=== PATIENT | male | born 1955 | race Two or more races ===

== ENCOUNTER 2016-07-27 21:38 | Emergency (ER) | payer MEDICAID ==
--- NOTE | 2016-07-27 22:10 | ED Physician Chart ---
Chief Complaint/HPI - Patient Information Date Seen:: 07/27/16 Time Seen:: 21:45 Chief Complaint:: lower back pain History of Present Illness:: THIS IS A 61 YO DIABETIC WHO SLIPPED AND FELL IN THE BATHROOM TONIGHT. HE IS NOW CONCERNED ABOUT THE PAIN IN HIS LEFT LOWER BACK AND HE HAS INCREASE PAIN ON AMBULATION. HE DENIES ANY PREVIOUS BACK OR HIP PROBLEMS. HE DENIES ALL OTHER MEDICAL PROBLEMS OR INJURIES. Allergies:: Allergies Allergy/AdvReac Type Severity Reaction Status Date / Time No Known Allergies Allergy Verified 07/27/16 21:57 Vitals:: Vital Signs - 8 hr 07/27/16 21:40 Temp 97.6 F HR 70 RR 18 BP 145/83 O2 Sat % 99 Historian:: Patient, Family Member Review:: Nurse's Note Reviewed Review of Systems - Review of Systems General/Constitutional: No fever, No chills, No weight loss, No weakness, No diaphoresis, No edema, No loss of appetite Skin: No skin lesions, No rash, No bruising Head: No headache, No light-headedness Eyes: No loss of vision, No pain, No diplopia ENT: No earache, No nasal drainage, No sore throat, No tinnitus Neck: No neck pain, No swelling, No thyromegaly, No stiffness, No mass noted Cardio Vascular: No chest pain, No palpitations, No PND, No orthopnea, No edema Pulmonary: No SOB, No cough, No sputum, No wheezing GI: No nausea, No vomiting, No diarrhea, No pain, No melena, No hematochezia, No constipation, No hematemesis G/U: No dysuria, No frequency, No hematuria Musculoskeletal: Bone or joint pain, Back pain, No muscle pain Endocrine: No polyuria, No polydipsia Psychiatric: No prior psych history, No depression, No anxiety, No suicidal ideation Hematopoietic: No bruising, No lymphadenopathy Allergic/Immuno: No urticaria, No angioedema Neurological: No syncope, No focal symptoms, No weakness, No paresthesia, No headache, No seizure, No dizziness, No confusion, No vertigo Past Medical History - Past Medical History Obtainable: Yes Past Medical History: DM Family History: None Social History: Non Smoker, No Alcohol, No Drug Use Surgical History: None Psychiatricy History: None Medication: Reviewed Family Medical History - Family Member Mother History Unknown: Yes Physical Exam - Physical Examination General/Constitutional: Awake, Well-developed, well-nourished, Alert, No distress, GCS 15, Non-toxic appearing, Ambulatory Head: Atraumatic Eyes: Lids, conjuctiva normal, PERRL, EOMI Skin: Nl inspection, No rash, No skin lesions, No ecchymosis, Well hydrated, No lymphadenopathy ENMT: External ears, nose nl, Nasal exam nl, Lips, teeth, gums nl Neck: Nontender, Full ROM w/o pain, No JVD, No nuchal rigidity, No bruit, No mass, No stridor Respiratory: Nl effort/Exclusion, Clear to Auscultation, No Wheeze/Rhonchi/Rales Cardio Vascular: RRR, No murmur, gallop, rubs, NL S1 S2 GI: No tenderness/rebounding/guarding, No organomegaly, No hernia, Normal BS's, Nondistended, No mass/bruits, No McBurney tenderness : No CVA tenderness Extremities: No tenderness or effusion, Full ROM, normal strength in all extremities, No edema, Normal digits & nails Other Extremities comments:: THERE IS SOME TENDERNESS OF THE L5-S1 AREA ON THE LEFT SIDE. THERE IS NO BROKEN SKIN OR ABRASIONS NOTED. THE RANGE OF MOTION IS NORMAL BUT PAINFUL OF THE BACK AND HIP. Neuro/Psych: Alert/oriented, DTR's symmetric, Normal sensory exam, Normal motor strength, Judgement/insight normal, Mood normal, Normal gait, No focal deficits Misc: normal gait, Normal back, No paraspinal tenderness Labs/Radiology/EKG Results - Radiology Results Results: left hip x-ray = neg for fx lumbo sacral spine x-ray = neg for fx ED Septic Shock - . Is Septic Shock (SBP<90, OR Lactate>4 mmol\L) present?: No - <6hrs of presentation: Vital Signs: Vital Signs - 8 hr 07/27/16 21:40 Temp 97.6 F HR 70 RR 18 BP 145/83 O2 Sat % 99 Reassessment (Disposition) - Reassessment Reassessment Condition:: Improved - Diagnosis Diagnosis:: CONTUSION OF THE LOWER BACK - Aftercare/Follow up Instructions Aftercare/Follow-Up Instructions:: Counseled pt regarding lab results/diagnosis & need follow up, Refer to Discharge Instructions, Counseled pt & family regarding lab results/diagnosis & need follow up Medication Prescribed:: MOTRIN 600MG - Patient Disposition Discharge/Transfer:: Home Condition at Disposition:: Improved ED Discharge Plan - Patient Disposition Admit/Discharge/Transfer: PT DISCHARGED HOME Condition at Disposition: Improved
--- NOTE | 2016-07-28 10:12 | Diagnostic Imaging Report ---
Pelvis and left hip 3 views Indication: Trauma Comparison: None Findings: Mild degenerative changes of left hip joint are noted. No evidence of an acute fracture or dislocation. Atherosclerotic vascular disease is noted. Nonspecific calcification is seen superior to the right greater trochanter. Impression: No evidence of an acute fracture. Mild degenerative changes Atherosclerotic vascular disease. In the setting of trauma, if clinical symptoms persist and there is continued concern for an occult fracture, follow up exams in 5-7 days is suggested.
--- NOTE | 2016-07-28 11:30 | Diagnostic Imaging Report ---
Lumbar spine 3 views Indication: Trauma Comparison: none Findings: The exam is limited due to body habitus. There appears to be transitional vertebral body anatomy. There is mild chronic vertebral body loss of height of L5. There is also mild chronic vertebral body loss of height of T10 and T11 and T12. No evidence of an acute compression fracture or subluxation. [id number] degenerative changes are seen greatest in the facet joints of lower lumbar spine. There may be pars defects at L5/S1. Osteopenia is noted. SI joints are preserved. There is moderate stool throughout the colon. Impression: Mild chronic vertebral body loss of height of T10, T11, T12, and L5. This may be related to osteopenia. No evidence of an acute compression fracture or subluxation. If there is continued concern for an occult fracture, CT examination is recommended for further assessment. Possible pars defects at L5/S1. No evidence of anterolisthesis. Again CT would further clarify, if indicated. Degenerative changes. In the setting of trauma, if clinical symptoms persist and there is continued concern for an occult fracture, follow up exams in 5-7 days is suggested.
== END 2016-07-27 23:00 | disposition home or self-care (01) ==
LOC: ER 21:38
DX: S30.0XXA Contusion of lower back and pelvis, initial encounter (principal); E11.9 Type 2 diabetes mellitus without complications; W01.0XXA Fall on same level from slipping, tripping and stumbling without subsequent striking against object, initial encounter; Y93.89 Activity, other specified; Y92.012 Bathroom of single-family (private) house as the place of occurrence of the external cause; Y99.8 Other external cause status
CPT/HCPCS: 72100-TC; 73501; Z7502